=== PATIENT | female | born 1970 | race Caucasian/White ===

== ENCOUNTER 2021-01-13 06:17 | Emergency (ER) | payer BC ==
[~2021-01-13] VITALS: Ht 160 cm; Wt 72.6 kg
[2021-01-13 06:32] VITALS: BP 122/59
--- NOTE | 2021-01-13 06:32 | NUR ---
PT AMBULATED TO BED #12
--- NOTE | 2021-01-13 06:35 | NUR ---
50 Y/O FEMALE BIB FRIEND C/O ANXIETY/PANIC ATTACK. PER PT, "I AM WORKING TODAY AT 0430AM WHEN I SUDDENLY HAVE PANIC ATTACK. I FELT DIZZY AND FEELS LIKE I AM SPINNING." PT DENIES ANY PAIN AT THIS TIME. PMH: ANXIETY, HYSTERECTOMY NKA MEDICATIONS AT HOME: LAMOTRIGEN, CITALOPRAM, LORAZEPAM
[2021-01-13] MEDS ORDERED: MECLIZINE 25 MG TAB PO ONE (06:40)
--- NOTE | 2021-01-13 06:40 | NUR ---
DR. HERNANDEZ AT BEDSIDE EXAMINING PATIENT
--- NOTE | 2021-01-13 07:08 | NUR ---
REPORT GIVEN TO ESTELA MACK FOR CONTINIUITY OF CARE
--- NOTE | 2021-01-13 07:10 | NUR ---
EKG DONE. STRIP READS SB AT 59
--- NOTE | 2021-01-13 07:11 | NUR ---
REPORT RECIEVED FROM FREDERICK NEWMAN. TRANSFER OF CARE RECIEVED
--- NOTE | 2021-01-13 07:41 | NUR ---
BLOOD TAKEN BEDSIDE. BLOOD WALKED OVER TO LAB
--- NOTE | 2021-01-13 07:48 | NUR ---
PT RESTING BEDSIDE WITH FRIEND BEDSIDE. BED IN LOWEST POSITION. SIDERAIL X1 UP. VITAL SIGNS STABLE. WILL CONTUINE TO MONITOR
[2021-01-13 07:59] LABS: BASOPHILS % (AUTO) 0.2 % (0.0-2.0); EOSINOPHILS # (AUTO) 0.1 K/uL (0-0.4); EOSINOPHILS % (AUTO) 1.4 % (0.0-4.0); HEMATOCRIT 40.8 % (36-48); HEMOGLOBIN 13.4 g/dL (12.0-16.0); LYMPHOCYTES # (AUTO) 1.6 K/uL (2.5-16.5); LYMPHOCYTES % (AUTO) 27.1 % (20.5-51.1); MEAN CORPUSCULAR HEMOGLOBIN 29 pg (27-31); MEAN CORPUSCULAR HGB CONC 33 g/dL (33-37); MEAN CORPUSCULAR VOLUME 88.4 fL (80-94); MONOCYTES # (AUTO) 0.3 K/uL (0.8-1.0); MONOCYTES % (AUTO) 4.9 % (1.7-9.3); NEUTROPHILS # (AUTO) 3.8 K/uL (1.8-7.7); NEUTROPHILS % (AUTO) 66.4 % (42.2-75.2); PLATELET COUNT (AUTO) 340 K/uL (140-450); RED BLOOD CELL COUNT(AUTO) 4.62 MIL/uL (4.20-5.40); RED CELL DISTRIBUTION WIDTH 13.8 % (11.6-13.7); WHITE BLOOD COUNT (AUTO) 5.8 K/uL (4.8-10.8)
[2021-01-13 08:18] LABS: ANION GAP 9.2 (8-16); CARBON DIOXIDE 28.7 mmol/L (21-32); CREATININE 0.7 mg/dL (0.6-1.3); POTASSIUM 3.9 mmol/L (3.5-5.1); THYROID STIMULATING HORMONE 2.13 uIU/mL (0.34-3.74); TOTAL BILIRUBIN 0.2 mg/dL (0.0-1.0)
[2021-01-13] MEDS ORDERED: MECL-303 PO (08:34)
[2021-01-13 08:48] VITALS: BP 122/59
--- NOTE | 2021-01-13 08:49 | NUR ---
Patient discharged with v/s stable. Written and verbal after care instructions given and explained. Patient alert, oriented and verbalized understanding of instructions. Ambulatory with to car. All questions addressed prior to discharge. ID band removed. Patient advised to follow up with PMD. Rx of MECLIZINE HCL given. Patient educated on indication of medication including possible reaction and side effects. Opportunity to ask questions provided and answered.
== END 2021-01-13 08:49 | disposition home or self-care (01) ==
LOC: MED 06:17
DX: R42 Dizziness and giddiness (principal); F41.0 Panic disorder [episodic paroxysmal anxiety]; Z90.49 Acquired absence of other specified parts of digestive tract; Z79.899 Other long term (current) drug therapy; Z90.710 Acquired absence of both cervix and uterus
CPT/HCPCS: 36415; 80053; 84443; 84484; 85025; 93005; 99284; J8597